=== PATIENT | female | born 1990 | race Caucasian/White ===

== ENCOUNTER 2023-12-21 10:44 | Observation (INO) | payer BC, SELFPAY ==
[2023-12-21 10:53] VITALS: BP 121/79; BMI 28.2
[2023-12-21] MEDS: LR 1000 IV (11:29)
[2023-12-21 11:40] LABS: Hematocrit 30.1 % (37.0-47.0); Hemoglobin 10.3 g/dL (12.0-16.0); Mean Corp Hgb Conc. 34.2 g/dL (33.0-37.0); Mean Corpuscular Volume 84.8 fL (81.0-99.0); Mean Platelet Volume 11.4 fL (7.4-10.4); Platelet Count 239 10^3/uL (130-400); Red Blood Cell Count 3.55 10^6/uL (4.20-5.40); Red Cell Dist. Width 13.6 % (11.5-14.5); White Blood Cell Count 7.9 10^3/uL (4.8-10.8)
== END 2023-12-21 14:23 | disposition home or self-care (01) ==
LOC: LDRP 10:44
PROVIDERS: ADMITTING PHYSICIAN Obstetrics & Gynecology; FAMILY PHYSICIAN Nurse Practitioner
DX: O36.8330 Maternal care for abnormalities of the fetal heart rate or rhythm, third trimester, not applicable or unspecified (principal); Z3A.36 36 weeks gestation of pregnancy; Z88.1 Allergy status to other antibiotic agents; Z88.2 Allergy status to sulfonamides
CPT/HCPCS: 76818; 85027; 86850; 86900; 86901; G0378

== ENCOUNTER → 2023-12-28 13:10 | Outpatient (REF) | payer BC, SELFPAY | LOC: PNTC 13:10 | PROVIDERS: ATTENDING PHYSICIAN Obstetrics & Gynecology | DX: O66.0 Obstructed labor due to shoulder dystocia (principal) | CPT/HCPCS: 76816 ==

== ENCOUNTER 2024-01-10 08:00 | Inpatient (IN) | payer BC, SELFPAY ==
[2024-01-10 08:21] VITALS: BP 125/81; BMI 28.4
[2024-01-10 09:18] LABS: % Basophils 0.2 % (0-2); % Immature Granulocytes 0.7 % (0-0.5); % Lymphocytes 11.1 % (20.5-51.1); % Monocytes 7.5 % (1.7-9.3); % Neutrophils 79.5 % (42.2-75.2); Absolute Eosinophils 0.1 10^3/uL (0-0.7); Absolute Immature Granulocytes 0.1 10^3/uL (0-0.05); Absolute Lymphocytes 0.9 10^3/uL (1.2-3.4); Absolute Monocytes 0.6 10^3/uL (0.1-0.6); Absolute Neutrophils 6.4 10^3/uL (1.4-6.5); Hematocrit 29.9 % (37.0-47.0); Mean Corp Hgb Conc. 33.4 g/dL (33.0-37.0); Mean Corpuscular Hgb 28.2 pg (27.0-31.0); Mean Corpuscular Volume 84.2 fL (81.0-99.0); Nucleated Red Blood Cells % 0 %; Platelet Count 231 10^3/uL (130-400); Red Blood Cell Count 3.55 10^6/uL (4.20-5.40); Red Cell Dist. Width 13.5 % (11.5-14.5); White Blood Cell Count 8.1 10^3/uL (4.8-10.8)
[2024-01-10] MEDS: LR 1000 IV ×2 (18:35→21:18)
[2024-01-10] MEDS: TYLENOL 1000 MG PO (18:36)
[2024-01-10] MEDS: BICITRA 30 ML PO (18:37)
[2024-01-10] MEDS: ANCEF 10 IV (18:37)
[2024-01-10] MEDS: PITOCIN 30 UNITS/NSS 500 ML IV (19:16)
[2024-01-10] MEDS: TORADOL 15 MG IV (22:01)
--- NOTE | 2024-01-10 22:45 | PTCARENOTE ---
Pt placed on tele monitor by this RN. Per pt, episodes of 'skipped beats' and breathlessness experienced during . NSR with pvc's on tele monitor. Pt resting comfortably. Denies cp, palpitations. Irregular apical. Murmur auscultated.
Discussed with [facility] nurse.
--- NOTE | 2024-01-10 23:30 | PTCARENOTE ---
Pt assessed on Tele monitor by this RN. HR in the 70's in NSR with PVC's. HR irregular to Auscultation. Palpable peripheral pulses present. Pt denies any complaints at this time. Pt instructed to notify [facility] RN for any cardiac symptoms. Pt
verbalizes understanding. Will monitor.
--- NOTE | 2024-01-11 00:58 | PTCARENOTE ---
Ventricular Trigeminy noted on tele monitor. HR in the 70's. Will monitor.
[2024-01-11] MEDS: TORADOL 15 MG IV ×3 (04:06→16:01)
[2024-01-11 06:03] LABS: Hematocrit 24.1 % (37.0-47.0); Hemoglobin 8.2 g/dL (12.0-16.0); Mean Corpuscular Hgb 28.6 pg (27.0-31.0); Mean Platelet Volume 11.5 fL (7.4-10.4); Platelet Count 191 10^3/uL (130-400); Red Blood Cell Count 2.87 10^6/uL (4.20-5.40); Red Cell Dist. Width 13.4 % (11.5-14.5); White Blood Cell Count 12.8 10^3/uL (4.8-10.8)
--- NOTE | 2024-01-11 07:50 | W.PN.ANS.POP ---
Anesthesia Post Operative
- Anesthesia Post Op Note
Vital Signs Stable-See Nursing Note: Yes
Airway Patent: Yes
Adequate Pain Control: Yes
Change in Mental Status: No
Current Postoperative Nausea & Vomiting: No
Anesthesia Complications: No
General Anesthetic Recall: No
Unplanned Admission: No
Post Op Hydration Adequate: Yes
--- NOTE | 2024-01-11 09:28 | PTCARENOTE ---
Assessed pt at bedside. Pt offered no complaints. HR slightly irregular per auscultation, NSR w/ occasional PVC on monitor, HR 70's. Will continue to monitor pt's telemetry. Instructed pt to notify RN with any abnormal feelings.
[2024-01-11] MEDS: MYLICON 80 MG PO (10:29)
[2024-01-11] MEDS: SENOKOT-S 1 TABLET PO (10:29)
[2024-01-11] MEDS: PRENATAL PLUS 1 TABLET PO (10:29)
--- NOTE | 2024-01-11 12:00 | PTCARENOTE ---
Pt w/ intermittent ventricular trigeminy. HR 70's. Pt asymptomatic. Maternity RN notified. Strip posted to chart and MD made aware by maternity RN.
--- NOTE | 2024-01-11 13:25 | CON.CAR ---
Addendum entered and electronically signed by Alessandro Beck MD 01/11/24 16:05:
I saw and examined the patient.
The GAS TORCH SOLDERER's note was reviewed and I agree with the note.
Comment: 33 y/o female with no cardiac medical history is now s/p 01/10/24 due to macrosomia. We are consulted since she was noted to have PVC's in a pattern of trigeminy at times on her monitoring coordinator. EKG stable. No symptoms.
- TTE pending
- otherwise OK to take off tele
- we will see in outpatient in 2-4 weeks
- likely HM to be ordered at that time
We will sign off please call with questions/concerns.
Original Note:
Consultation
Consultation Request
Date/Time Consultation Requested: 01/11/24 1206
Date/Time Consultation Performed: 01/11/24 1250
Requesting Provider: Dr. Swartz
Performing Provider: Omayra DE LA TORRE for Dr. Beck
Reason for Consultation: ventricular trigeminy
Medical History
-
Chief Complaint: s/p
History of Present Illness:
33 y/o female with no cardiac medical history is now s/p 01/10/24 due to macrosomia. We are consulted since she was noted to have PVC's in a pattern of trigeminy at times on her monitoring coordinator. EKG stable. No symptoms. Looks well.
Past Medical History
Past Medical History: None
Social History
Tobacco: Non-Smoker
Personal:
Living: With Family
Family History
Family History: Reviewed & Not Pertinent (denies any significant cardiac family history)
Allergies / Home Medications
Allergy/AdvReac Type Severity Reaction Status Date / Time
Sulfa (Sulfonamide Allergy Rash Verified 12/21/23 10:52
Antibiotics)
trimethoprim Allergy Rash Verified 12/21/23 10:52
Medication Instructions Recorded Confirmed Type
vits 96-ferrous fumarate 1 ea PO DAILY Supplement 09/30/19 01/10/24 History
27 mg iron-folic acid 800 mcg
tablet
Review of Systems
-
History Source: Patient
All other systems: Negative unless noted
Cardiac: Other (denies any palpitations)
Physical Exam
Vital Signs
Temp Pulse Resp BP
98.6 F 96 18 125/81
01/10/24 08:21 01/10/24 08:21 01/10/24 08:21 01/10/24 08:21
Lab Results
01/11/24 05:27
Physical Exam
General: Well Developed, Well Nourished and No Apparent Distress
HEENT: Normocephalic and Anicteric
Respiratory: Clear and Non Labored Respirations
Cardiac: Regular Rhythm
Musculoskeletal: No Edema
Skin: Warm and Dry
Neuro: AO x 3
Psych: Calm
Impression / Plan
-
s/p :
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
PVC's with periods of ventricular trigeminy:
-no symptoms, no runs, mostly NSR. EKG is normal.
-check echo
-check electrolytes and thyroid studies. Keep K+ >4, mag >2.
-OP Holter monitor after cardiology follow-up 2-4 weeks (after recovery)
-okay to d/c telemetry
Data Reviewed
-
EKG: Tracing Personally Visualized and interpreted (NSR)
Medical Tests (Nuc Med, Echo etc): Other (ordered)
Labs: Other (labs ordered by me)
[2024-01-11] MEDS: FEOSOL 325 MG PO ×2 (13:34→19:32)
--- NOTE | 2024-01-11 14:00 | PTCARENOTE ---
Dr Sierra reviewed tele history. Plan to DC tele monitor.
[2024-01-11 14:30] LABS: Blood Urea Nitrogen 10 mg/dl (7-17); Calcium 8.7 mg/dl (8.4-10.2); Carbon Dioxide 24 mmol/L (22-30); Chloride 103 mmol/L (98-107); Estimated Creatinine Clearance > 125 ml/min; Glucose 124 mg/dl (70-99); Magnesium 1.9 mg/dl (1.6-2.3); Sodium 133 mmol/L (135-145); eGFR > 60.00
[2024-01-11 15:00] LABS: TSH Reflex To Free T4 1.11 uIU/ml (0.47-4.68)
[2024-01-11] MEDS: TYLENOL 650 MG PO (19:32)
[2024-01-11] MEDS: MOTRIN 600 MG PO (22:35)
[2024-01-12] MEDS: MOTRIN 600 MG PO ×2 (04:32→10:54)
--- NOTE | 2024-01-12 07:12 | W.DS.TRANS ---
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
-
Discharge Instructions:
Discharge Diagnosis/Procedures delivered 39w5d; macrosomia,
prior shoulder dystocia; /primary low transverse
csection; Premature ventricular contractions
Diet Regular
Activity No strenuous activity
Driving Restrictions No driving for 2 weeks
Bathing Restrictions OK to Shower
Instructions:
Stand-Alone Forms: [facility] Delivery
Changes to Home Medications: No
Discharge Medications:
DC Medications w/original date entered in [employer]
vits 96-ferrous fumarate 27 mg iron-folic acid 800 mcg tablet 1 ea PO DAILY Supplement 09/30/19
acetaminophen 325 mg tablet 650 mg PO Q4HPRN PRN mild pain #0 tabs 01/12/24
ferrous sulfate 325 mg (65 mg iron) tablet (FeroSul) 325 mg PO DAILY #0 tabs 01/12/24
ibuprofen 600 mg tablet 600 mg PO Q6HPRN PRN cramps #0 tabs 01/12/24
Home Medication Changes
Pending Results: No
[2024-01-12] MEDS: FEOSOL 325 MG PO (08:07)
[2024-01-12] MEDS: SENOKOT-S 1 TABLET PO (08:08)
[2024-01-12] MEDS: PRENATAL PLUS 1 TABLET PO (08:08)
[2024-01-12] MEDS: MYLICON 80 MG PO (10:05)
--- NOTE | 2024-01-12 12:54 | CM ---
CM reviewed chart and met with parents of baby kobe Cortez
Parents confirm they reside at listed address with 2 their daughters ages 4 and 21/2
Mom reporting she plans to bottle feed her son and that she has all supplies for , including car seat
Mom reporting she plans to take her son to [facility] and has scheduled appointment
CM will be available for any d/c needs
[2024-01-12 16:30] LABS: Syphilis/T. pallidum Ab Reflex Negative (Negative)
== END 2024-01-12 12:54 | disposition home or self-care (01) | DRG 786 ==
LOC: LDRP 08:00
PROVIDERS: Nurse Practitioner; ADMITTING PHYSICIAN Obstetrics & Gynecology
PROC: 10D00Z1 Extraction of Products of Conception, Low, Open Approach (ICD-10-PCS; 2024-01-10)
DX: O36.63X0 Maternal care for excessive fetal growth, third trimester, not applicable or unspecified (principal); O99.42 Diseases of the circulatory system complicating childbirth; Z3A.39 39 weeks gestation of pregnancy; Z37.0 Single live birth; I49.3 Ventricular premature depolarization; O90.81 Anemia of the puerperium
CPT/HCPCS: 80048; 83735; 84443; 85025; 85027; 86780; 86850; 86900; 86901; 93005; 93306